=== PATIENT | female | born 1965 | race American Indian/Alaskan Native ===

== ENCOUNTER 2021-11-01 10:31 | Emergency (ER) | payer SELFPAY ==
[2021-11-01] MEDS ORDERED: HYDROcodone/ACETAMINOPHEN 5-325 MG TAB PO ONE (15:08)
--- NOTE | 2021-11-01 15:51 | XRay Report ---
LEFT KNEE 3 VIEW(S) INDICATION / CLINICAL INFORMATION: knee pain COMPARISON: None available. FINDINGS: BONES / JOINT(S): No acute fracture or subluxation. There is mild degenerative change in the patellof emoral compartment. SOFT TISSUES: No significant abnormality. ADDITIONAL FINDINGS: None. Signer Name: Sterling Diaz MD Signed: 11/01/2021 3:46 PM Workstation Name: [id number] [email or web address]
--- NOTE | 2021-11-01 17:02 | Emergency Department Report ---
ED General Adult HPI - General Chief complaint: Extremity Injury, Lower Stated complaint: LEFT KNEE PAIN Time Seen by Provider: 11/01/21 15:06 Source: patient, EMS Mode of arrival: Stretcher Limitations: No Limitations - History of Present Illness Initial comments: 56-year-old female no significant past medical history reports to the ER with left knee pain after tripping and falling 1 day ago while at her child's school. Patient denies head injury patient reports limited movement due to pain in left knee. Patient reports taking Tylenol for pain with little relief. No other acute signs or symptoms reported. Severity scale (0 -10): 7 - Related Data Previous Rx's Medication Instructions Recorded Last Taken Type Acetaminophen/Codeine [Tylenol 1 tab PO Q6H PRN 2 Days #8 tab 11/01/21 Unknown Rx /Codeine # 3 tab] Ibuprofen [Motrin] 600 mg PO Q8H PRN 6 Days #18 tablet 11/01/21 Unknown Rx Allergies Allergy/AdvReac Type Severity Reaction Status Date / Time No Known Allergies Allergy Verified 11/01/21 10:36 ED Review of Systems ROS: Stated complaint: LEFT KNEE PAIN Other details as noted in HPI Comment: All other systems reviewed and negative Musculoskeletal: other (Left knee pain) ED Past Medical Hx - Past Medical History Previous Medical History?: No - Medications Home Medications: Home Medications Medication Instructions Recorded Confirmed Last Taken Type Acetaminophen/Codeine [Tylenol 1 tab PO Q6H PRN 2 Days #8 tab 11/01/21 Unknown Rx /Codeine # 3 tab] Ibuprofen [Motrin] 600 mg PO Q8H PRN 6 Days #18 tablet 11/01/21 Unknown Rx ED Physical Exam - General Limitations: No Limitations General appearance: alert, in no apparent distress - Head Head exam: Present: atraumatic, normocephalic - Eye Eye exam: Present: normal appearance - ENT ENT exam: Present: mucous membranes moist - Neck Neck exam: Present: normal inspection - Respiratory Respiratory exam: Present: normal lung sounds bilaterally. Absent: respiratory distress - Cardiovascular Cardiovascular Exam: Present: regular rate, normal rhythm. Absent: systolic murmur, diastolic murmur, rubs, gallop - GI/Abdominal GI/Abdominal exam: Present: soft, normal bowel sounds - Extremities Exam Extremities exam: Present: normal inspection - Back Exam Back exam: Present: normal inspection - Neurological Exam Neurological exam: Present: alert, oriented X3 - Psychiatric Psychiatric exam: Present: normal affect, normal mood - Skin Skin exam: Present: warm, dry, intact, normal color. Absent: rash ED Course Vital Signs 11/01/21 10:33 Temperature 98.1 F Pulse Rate 95 H Respiratory 14 Rate Blood Pressure 123/71 [Left] O2 Sat by Pulse 99 Oximetry ED Medical Decision Making - Radiology Data [facility] [address] [place] [address] XRay Report Signed Patient: ADONIS SANTOS MR#: [id number] : 1965 Acct:[id number] Age/Sex: 56 / F ADM Date: 11/01/21 Loc: ED Attending Dr: Ordering Physician: MARCELLA ALMEIDA NP Date of Service: 11/01/21 Procedure(s): XR knee 3V LT Accession Number(s): [id number] cc: MARCELLA ALMEIDA NP Fluoro Time In Minutes: LEFT KNEE 3 VIEW(S) INDICATION / CLINICAL INFORMATION: knee pain COMPARISON: None available. FINDINGS: BONES / JOINT(S): No acute fracture or subluxation. There is mild degenerative change in the patellofemoral compartment. SOFT TISSUES: No significant abnormality. ADDITIONAL FINDINGS: None. Signer Name: Sterling Diaz MD Signed: 11/01/2021 3:46 PM Workstation Name: [id number] Transcribed By: Dictated By: Sterling Diaz MD Electronically Authenticated By: Sterling Diaz MD Signed Date/Time: 11/01/21 1546 DD/ 45 TD/TT: - Medical Decision Making 56-year-old female no significant past medical history reports to the ER with left knee pain after tripping and falling 1 day ago while at her child's school. Patient denies head injury patient reports limited movement due to pain in left knee. Patient reports taking Tylenol for pain with little relief. No other acute signs or symptoms reported. Left knee with tenderness limited movement due to pain. No swelling noted no deformity noted. No open wounds. X-ray with no acute fracture dislocation noted Patient received oral medication here in ER for pain Patient updated on x-ray results. Patient discharged home with oral medication for pain control. Patient agrees with plan of care and verbalized understanding. Patient informed to follow back up in ER if symptoms are to get worse. Patient is here for discharge. Active Orders 24 hr Category Date Time Status ABE wrap [Apply elastic bandage] .NOW Care 11/01/21 15:08 Active Vital Signs (72 hours) 11/01/21 10:33 Temperature 98.1 F Pulse Rate 95 H Respiratory 14 Rate Blood Pressure 123/71 [Left] O2 Sat by Pulse 99 Oximetry Critical care attestation.: If time is entered above; I have spent that time in minutes in the direct care of this critically ill patient, excluding procedure time. ED Disposition Clinical Impression: Left knee pain Qualifiers: Chronicity: acute Qualified Code(s): M25.562 - Pain in left knee Left knee sprain Qualifiers: Encounter type: initial encounter Involved ligament of knee: other ligament Qualified Code(s): S83.8X2A - Sprain of other specified parts of left knee, initial encounter Disposition: 01 HOME / SELF CARE / HOMELESS Is pt being admited?: No Condition: Stable Instructions: Acute Knee Pain, Adult Prescriptions: Ibuprofen [Motrin] 600 mg PO Q8H PRN 6 Days #18 tablet PRN Reason: Pain Acetaminophen/Codeine [Tylenol /Codeine # 3 tab] 1 tab PO Q6H PRN 2 Days #8 tab PRN Reason: Pain , Severe (7-10)
[2021-11-01 18:08] VITALS: BP 113/62
== END 2021-11-01 18:04 | disposition home or self-care (01) ==
LOC: ED 10:31
DX: M25.562 Pain in left knee (principal); W01.0XXA Fall on same level from slipping, tripping and stumbling without subsequent striking against object, initial encounter; Y93.89 Activity, other specified; Y92.89 Other specified places as the place of occurrence of the external cause; Y99.8 Other external cause status
CPT/HCPCS: 99283; 99284